=== PATIENT | female | born 1955 | race Caucasian/White ===

== ENCOUNTER 2020-09-28 13:01 | Emergency (ER) | payer OTHER, SELFPAY ==
--- NOTE | 2020-09-28 13:11 | ED.ALCOHOL ---
HPI - Alcohol General Chief Complaint: ETOH/Substance Use Stated Complaint: ? Time Seen by Provider: 09/28/20 13:07 Source: patient and EMS Mode of arrival: EMS Limitations: no limitations History of Present Illness HPI narrative: wants help with ETOH detox MD complaint: alcohol intoxication Last drink: Hours (ago) Chronic alcohol use: Yes Previous visits for alcohol intoxication: Yes Recent trauma: No Associated symptoms: denies other symptoms Treatments prior to arrival: none Related Data Allergies Allergy/AdvReac Type Severity Reaction Status Date / Time No Known Allergies Allergy Verified 09/28/20 13:07 Review of Systems Review of Systems: Constitutional : No Weight loss, No Fever, No Chills, No Fatigue, No Malaise ENT/Mouth : No sore throat, No Rhinorrhea Eyes: No Eye Pain, No Swelling, No Redness Cardiovascular : No Chest Pain, No SOB, No Dyspnea on Exertion, No Orthopnea, No Edema, No Palpitations Respiratory : No Cough, No Sputum, No Wheezing Gastrointestinal : No Nausea, No Vomiting, No Diarrhea, No Constipation, No abdominal Pain, No Hematochezia, No Melena Genitourinary : No Dysuria, No Urinary Frequency, No Hematuria, Musculoskeletal : No joint pain, No Myalgias, No Joint Swelling Skin : No Skin Lesions, No rash Neuro : No Weakness, No Numbness, No Dizziness, No Headache Psych : pos Anxiety/Panic, pos Depression, no SI/HI Heme/Lymph: No Bruising, No Bleeding,No Lymphadenopathy Endocrine : No Polyuria, No Polydipsia All other systems reviewed and are negative [facility] Past Medical History Attestation statement: The following information was validated with the patient. Medical History Alcoholism Cirrhosis Social History Social History (Updated 09/28/20 @ 13:13 by Kelly Shaffer DO) Alcohol intake: current Patient Tobacco Use Status: Current someday Tobacco user Use of substances other than those prescribed or required for medical reasons: No Advance Directives: No Advance Directives Information Provided: No Patient : No Physical Exam Vital Signs: Vital Signs: Last Vital Signs Temp 98.2 F 09/28/20 13:13 Pulse 86 09/28/20 13:13 Resp 16 09/28/20 13:13 BP 116/58 L 09/28/20 13:13 Pulse Ox 100 09/28/20 13:13 Body Mass Index 20.0 Appearance: Alert. Oriented X3. No acute distress. Eyes: Pupils equal, round and reactive to light. scleral icterus noted ENT: Pharynx normal. Neck: Normal inspection. Neck supple. CVS: Normal heart rate and rhythm. Pulses normal. Respiratory: No respiratory distress. Breath sounds normal. Abdomen: Soft and non-tender. Skin: Skin warm and dry. mild jaundice noted. Normal skin turgor. Extremities: No lower extremity edema. No calf ttp Neuro: Oriented X 3. No motor deficit. No sensory deficit. Course Course Course Narrative: patient refuses EKG states the stickers are very harmful to her skin labs consistent with cirrhosis Patient placed in physician observation at 533pm. The indication for observation is that the patient needs more time to metabolize alcohol and assess for detox. At this time the patient is well developed well nourished, lungs clear, CV RRR, abd nontender, neuro is intact. MDM - Alcohol MDM Narrative Medical decision making narrative: 65 yo female with cirrhosis and ETOH here requesting help with detox as she could not get in on her own and she felt helpless - no trauma reported, will need labs, care team consult, PO thiamine, denies prior history of withdrawal seizures Lab Data Result diagrams: 09/28/20 13:44 09/28/20 13:43 Labs: Lab Results 09/28/20 09/28/20 09/28/20 Range/Units 13:43 13:43 13:44 WBC 4.1 L (4.8-10.8) X10*3/uL RBC 3.52 L (4.20-5.50) X10*6/uL Hgb 10.4 L (12.0-16.0) g/dl Hct 31.3 L (37-47) % MCV 88.9 (80-98) fL MCH 29.5 (27.0-33.0) pg MCHC 33.2 (31.0-35.0) g/dl RDW 15.6 (11.0-16.0) % Plt Count 51 L (160-400) X10*3/uL MPV 12.1 (9.4-12.3) fL Immature Gran % (Auto) 0.0 (0.0-0.4) % Neut % (Auto) 61.0 (45-73) % Lymph % (Auto) 28.9 (20-40) % [place] % (Auto) 7.4 (2-11) % Eos % (Auto) 2.0 (0-4) % Baso % (Auto) 0.7 (0-2) % Lymph # (Auto) 1.2 (1.2-4.9) X10*3/uL [place] # (Auto) 0.3 (0.1-1.2) X10*3/uL Eos # (Auto) 0.1 (0.0-0.4) X10*3/uL Baso # (Auto) 0.0 (0.0-0.2) X10*3/uL Abs Immat Gran (auto) 0.00 (0.00-0.03) X10*3/uL Absolute Neuts (auto) 2.5 (2.0-8.3) X10*3/uL Absolute Nucleated RBC 0.000 (0.0-0.012) X10*3/uL Nucleated RBC % (auto) 0.0 (0.0-0.2) /100WBC Smear Tech's Comments VERIFIED Sodium 147 H (135-145) mmol/L Potassium 3.2 L (3.3-5.1) mmol/L Chloride 112 H (96-108) mmol/L Carbon Dioxide 22 (22-29) mmol/L Anion Gap 16 (12-20) BUN 12 (9-16) mg/dL Creatinine 0.85 (0.5-1.4) mg/dL Estim Creat Clear Calc 58.1 Estimated GFR > 60 Random Glucose 124 H (60-115) mg/dL Calcium 8.5 (8.4-10.2) mg/dL Magnesium (1.6-2.6) mg/dL Total Bilirubin (0.0-1.0) mg/dL Direct Bilirubin (0.0-0.5) mg/dL AST (5-31) U/L ALT (0-31) U/L Alkaline Phosphatase (39-117) U/L Total Protein (6.5-8.0) g/dL Albumin (3.5-5.0) g/dL Ethyl Alcohol 430 H* mg/dL COVID-19 (ALEJANDRO) (Negative) COVID-19 Clin Com 09/28/20 09/28/20 Range/Units 13:44 13:45 WBC (4.8-10.8) X10*3/uL RBC (4.20-5.50) X10*6/uL Hgb (12.0-16.0) g/dl Hct (37-47) % MCV (80-98) fL MCH (27.0-33.0) pg MCHC (31.0-35.0) g/dl RDW (11.0-16.0) % Plt Count (160-400) X10*3/uL MPV (9.4-12.3) fL Immature Gran % (Auto) (0.0-0.4) % Neut % (Auto) (45-73) % Lymph % (Auto) (20-40) % [place] % (Auto) (2-11) % Eos % (Auto) (0-4) % Baso % (Auto) (0-2) % Lymph # (Auto) (1.2-4.9) X10*3/uL [place] # (Auto) (0.1-1.2) X10*3/uL Eos # (Auto) (0.0-0.4) X10*3/uL Baso # (Auto) (0.0-0.2) X10*3/uL Abs Immat Gran (auto) (0.00-0.03) X10*3/uL Absolute Neuts (auto) (2.0-8.3) X10*3/uL Absolute Nucleated RBC (0.0-0.012) X10*3/uL Nucleated RBC % (auto) (0.0-0.2) /100WBC Smear Tech's Comments Sodium (135-145) mmol/L Potassium (3.3-5.1) mmol/L Chloride (96-108) mmol/L Carbon Dioxide (22-29) mmol/L Anion Gap (12-20) BUN (9-16) mg/dL Creatinine (0.5-1.4) mg/dL Estim Creat Clear Calc Estimated GFR Random Glucose (60-115) mg/dL Calcium (8.4-10.2) mg/dL Magnesium 1.8 (1.6-2.6) mg/dL Total Bilirubin 3.2 H (0.0-1.0) mg/dL Direct Bilirubin 1.3 H (0.0-0.5) mg/dL AST 102 H (5-31) U/L ALT 39 H (0-31) U/L Alkaline Phosphatase 101 (39-117) U/L Total Protein 7.5 (6.5-8.0) g/dL Albumin 4.5 (3.5-5.0) g/dL Ethyl Alcohol mg/dL COVID-19 (ALEJANDRO) Negative (Negative) COVID-19 Clin Com See Note Discharge Plan Discharge Clinical Impression: Alcoholic intoxication Instructions: Abuse of Alcohol (ED)
[2020-09-28 13:13] VITALS: BP 116/58; PULSE 86; RESP 16; TEMP 36.8; O2SAT 100
--- NOTE | 2020-09-28 13:23 | PC.NURSE ---
PT REFUSED EKG RN AWARE, AWARE
[2020-09-28] MEDS: Thiamine HCL 100 MG TABLET PO (13:27)
[2020-09-28 13:53] LABS: Basophils Percent Auto 0.7 % (0-2); MANUAL DIFF FLAG SCAN; PLT CLUMP 1; SCAN SMEAR FLAG 1
[2020-09-28 13:55] LABS: Eosinophils Absolute Auto 0.1 X10*3/uL (0.0-0.4); Hematocrit 31.3 % (37-47); Hemoglobin 10.4 g/dl (12.0-16.0); Lymphocytes Absolute Auto 1.2 X10*3/uL (1.2-4.9); Lymphocytes Percent Auto 28.9 % (20-40); Mean Corpuscular HGB Conc 33.2 g/dl (31.0-35.0); Mean Corpuscular Hemoglobin 29.5 pg (27.0-33.0); Mean Corpuscular Volume 88.9 fL (80-98); Mean Platelet Volume 12.1 fL (9.4-12.3); Monocytes Absolute Auto 0.3 X10*3/uL (0.1-1.2); Monocytes Percent Auto 7.4 % (2-11); Neutrophils Absolute Auto 2.5 X10*3/uL (2.0-8.3); Red Blood Count 3.52 X10*6/uL (4.20-5.50); Red Cell Distribution Width 15.6 % (11.0-16.0); White Blood Count 4.1 X10*3/uL (4.8-10.8)
[2020-09-28 14:08] LABS: COVID-19 Test Negative (Negative); IDNOW Serial# 9DD0AD1C
[2020-09-28 14:15] LABS: Platelet Count 51 X10*3/uL (160-400)
[2020-09-28 14:16] LABS: SLIDE REVIEW VERIFIED
[2020-09-28 14:23] LABS: Ethanol 430 mg/dL
[2020-09-28 14:26] LABS: Anion Gap 16 (12-20); Blood Urea Nitrogen 12 mg/dL (9-16); Calcium 8.5 mg/dL (8.4-10.2); Carbon Dioxide 22 mmol/L (22-29); Chloride 112 mmol/L (96-108); Creatinine Clr Calc Pharmacy 58.1; Estimated Glomerular Filt Rate > 60; Glucose Random 124 mg/dL (60-115); Potassium 3.2 mmol/L (3.3-5.1); Sodium 147 mmol/L (135-145)
[2020-09-28 14:28] LABS: Alanine Aminotransferase 39 U/L (0-31); Albumin Level 4.5 g/dL (3.5-5.0); Alkaline Phosphatase 101 U/L (39-117); Aspartate Amino Transferase 102 U/L (5-31); Bilirubin Direct 1.3 mg/dL (0.0-0.5); Bilirubin Total 3.2 mg/dL (0.0-1.0); Magnesium 1.8 mg/dL (1.6-2.6); Total Protein 7.5 g/dL (6.5-8.0)
--- NOTE | 2020-09-28 15:26 | PC.NURSE ---
pt is nauseous at this time- hold off on potassium- aware
--- NOTE | 2020-09-28 18:46 | PC.NURSE ---
pt becoming increasingly irritated talking to intake on the phone. plan to get vitals and offer medication s/p conversation
--- NOTE | 2020-09-28 18:49 | PC.NURSE ---
pt refusing medication at this time
[2020-09-28 19:01] VITALS: BP 134/74; PULSE 95; TEMP 36.6; O2SAT 97
--- NOTE | 2020-09-28 19:48 | MHC.CARE ---
CARE team rec consult for case for ETOH detox. Pt is a 65 yro female who arrived to [facility] today at 1pm on her own asking for help getting into detox for her ETOH dep. Pts BAL upon arrival was 430. Pt was medically stable and moved to the Pod for referral to help with detox. While pt was resting quietly in the pod later this afternoon after her medical workup, CARE team began a statewide detox bedsearch. The following were full and no beds available: [facility] and [facility], and [facility] in [place] accepted clinical then declined based on commercial insurance. CARE referred to [facility] and [facility] but was declined based on commercial insurance (no out of network benefits). CARE referred back to [facility] in [place] where pt reportedly had recently attended for 1 day that ended when pt had a fall while there. CARE spoke with [facility] about return and based on the exhausted bedsearch statewide considering a single case agreement. T/w had pt partake in phone interview and spoke with admission at [facility] at 1930 who hoped to get her the help she needs by later tonight and agreed to pursue the insurance aspect and single case agreement sooner than Wednesday (based on insurance ). Stefan will call [facility] ED and ask for POD to review the dispo later. T/w clarified with [facility] that pt is indeed fully ambulatory and can participate in her ADLS at present due to an error that was listed in ED summary stating pt required assist in ambulation. T/w faxed full clinical. Pt is agreeable and on board with the (hopeful) plan to be accepted to [place].
[2020-09-28] MEDS: Potassium Chloride Packet 20 MEQ PACKET PO (19:52)
[2020-09-28] MEDS: LORazepam 1 MG TABLET PO (19:52)
--- NOTE | 2020-09-28 20:00 | PC.NURSE ---
Pt medicated as ordered with Ativan and Potassium Chloride 20meq packet. Will continue to monitor.
[2020-09-28 20:12] LABS: Glucose Urine UA NEG (NEG); Leukocyte Esterase Urine 1+ (NEG); Nitrite Urine NEG (NEG); UACC Culture Trigger YES; Urine Blood TRACE (NEG); Urine Ketones NEG (NEG); Urine Protein 1+ MG/DL (NEG-TRACE)
[2020-09-28 20:17] LABS: Appearance Urine CLEAR; Color Urine YELLOW
[2020-09-28 20:38] LABS: Amphetamine Screen Urine Not Detected (Not Detect); Barbiturates, Urine Not Detected (Not Detect); Benzodiazepines Screen Urine Not Detected (Not Detect); Cannabinoid Screen Urine POSITIVE (Not Detect); Cocaine Screen Urine Not Detected (Not Detect); Opiate Screen Urine Not Detected (Not Detect); Phencyclidine Screen Urine Not Detected (Not Detect); RBC Urine 0-2 /HPF (0); Squamous Epithelial Cell Urine 1+ /LPF
--- NOTE | 2020-09-29 05:35 | PC.NURSE ---
Throughout this shift, patient has remained in behavioral control, and has remained calm/cooperative with all staff members. Pt sleeping at this time. [facility] from [facility] Team[facility] [place] [place] [facility] this RN, however, no call was received during this shift. Hopeful plan for patient to go to [facility] later today (per Care Team). Pt ambulates with steady gait throughout shift independently and is able to make needs known. Pt continues to want detox services and is 'excited' about going back to [facility] and is hopeful and positive about goals towards recovery, as told to this RN. Will continue to monitor.
[2020-09-29 06:00] VITALS: BP 126/63; PULSE 93; RESP 18; TEMP 37.6; O2SAT 96
--- NOTE | 2020-09-29 07:35 | PC.NURSE ---
report taken from agueda calderon pt here for etoh use/seeking detox, has been resting comfortably in pt bed throughout night per previous shift rn. breakfast tray left at bedside this am, rr even/unlabored. potential plan for xfer to [facility] today per previous shift rn, will f/u w care team.
[2020-09-29 09:37] VITALS: BP 117/68; PULSE 86; RESP 16; TEMP 36.8; O2SAT 97
[2020-09-29] MEDS: LORazepam 1 MG TABLET PO ×2 (10:09→16:01)
--- NOTE | 2020-09-29 10:10 | PC.NURSE ---
pt requesting med for nausea, given zofran. pt still feeling nauseous, had small emesis in emesis bag. sts feeling some chills as well, given prn ativan d/t s/s of withdrawal. pt pleasant w this rn, will monitor for med effect.
--- NOTE | 2020-09-29 11:08 | PC.NURSE ---
pt reports feeling better after prn ativan, awaiting update from care team regarding potential xfer to detox
--- NOTE | 2020-09-29 12:52 | MHC.RECOVSUP ---
Recovery Support note: This bond underwriter met with patient to follow up regarding the plan set in place yesterday by The CARE Team. Patient continues to report interest in going to [facility] for detox. Patient reports she was there several months ago, however got up too quickly from bed to go the bathroom and hit her shoulder on a chair, resulting in a hematoma. Patient was discharged due to this and reports she was there for one day. This bond underwriter [facility] and they reported that patient would benefit most from a SNF. This bond underwriter explained that patient can ambulate and perform her ADL's independently. [facility] relayed this information to the reviewing physician. After several hours, this bond underwriter received follow up from [facility]. For patient to be considered for admission, they are requesting PT/INR labs, a repeat on the potassium and a diagnosis regarding her hematological issues. This bond underwriter updated patient on the current situation and she is agreeable to having labs redrawn. Discussed case with patient's ED provider. This bond underwriter will fax the updated information to [facility] as soon as it is available.
[2020-09-29 13:31] LABS: INTERNATIONAL NORM RATIO 1.5 (0.9-1.1); Prothrombin Time 17.2 SEC (9.9-13.0)
[2020-09-29 13:57] LABS: Anion Gap 17 (12-20); Blood Urea Nitrogen 12 mg/dL (9-16); Carbon Dioxide 22 mmol/L (22-29); Chloride 105 mmol/L (96-108); Creatinine Clr Calc Pharmacy 59.6; Estimated Glomerular Filt Rate > 60; Glucose Random 139 mg/dL (60-115); Potassium 3.9 mmol/L (3.3-5.1); Sodium 140 mmol/L (135-145)
[2020-09-29 17:32] VITALS: BP 153/78; PULSE 105; RESP 18; O2SAT 98
== END 2020-09-29 18:35 | disposition other institution (70) ==
PROVIDERS: Nurse Practitioner Family; Emergency Provider Emergency Medicine; PCP Internal Medicine
DX: F10.229 Alcohol dependence with intoxication, unspecified (principal); Y90.8 Blood alcohol level of 240 mg/100 ml or more; K74.60 Unspecified cirrhosis of liver; R79.1 Abnormal coagulation profile; D64.9 Anemia, unspecified; D69.6 Thrombocytopenia, unspecified; Z20.822 Contact with and (suspected) exposure to COVID-19
CPT/HCPCS: 36415; 80048; 80076; 80307; 81001; 81003; 82077; 83735; 85025; 85610; 87086; 87635; 99285

== ENCOUNTER 2020-11-11 12:38 | Emergency (ER) | payer OTHER, SELFPAY ==
[2020-11-11 12:48] VITALS: BP 125/70; BP 138/79; PULSE 88; PULSE 90; RESP 18; O2SAT 97; O2SAT 98; BMI 17.4
--- NOTE | 2020-11-11 12:49 | ED.ALCOHOL ---
HPI - Alcohol General Chief Complaint: ETOH/Substance Use Stated Complaint: etoh intoxication Time Seen by Provider: 11/11/20 12:45 Source: patient and EMS Mode of arrival: EMS Limitations: other (ETOH intoxication) History of Present Illness MD complaint: alcohol intoxication and desires rehab Last drink: Just prior to admission Chronic alcohol use: Yes Previous visits for alcohol intoxication: Yes Recent trauma: No Associated symptoms: other (has not eaten for 3 days) Treatments prior to arrival: none Related Data Home Medications Medication Instructions Recorded Confirmed No Known Home Meds 09/28/20 09/28/20 Allergies Allergy/AdvReac Type Severity Reaction Status Date / Time No Known Allergies Allergy Verified 09/28/20 13:07 Review of Systems Review of Systems: ROS unable to be obtained due to ETOH intoxication [facility] Past Medical History Attestation statement: The following information was validated with the patient. Medical History Alcoholism Cirrhosis Social History Social History Alcohol intake: current Patient Tobacco Use Status: Current someday Tobacco user Advance Directives: No Advance Directives Information Provided: No Physical Exam Vital Signs: Vital Signs: Last Vital Signs Pulse 88 11/11/20 12:48 Resp 18 11/11/20 12:48 BP 138/79 11/11/20 12:48 Pulse Ox 97 11/11/20 12:48 Body Mass Index 17.4 Appearance: Alert. Oriented X3. No acute distress. ETOH odor, slurred speech Eyes: Pupils equal, round and reactive to light. scleral icterus ENT: Pharynx normal. Neck: Normal inspection. Neck supple. CVS: Normal heart rate and rhythm. Pulses normal. Respiratory: No respiratory distress. Breath sounds normal. Abdomen: Soft and nontender. Skin: Skin warm and dry. jaundiced. Normal skin turgor. Extremities: No lower extremity edema. No calf ttp Neuro: Oriented X 3. No motor deficit. No sensory deficit. Course Course Course Narrative: will give PO and IV potassium for repletion she is able to eat, pending that her labs are at baseline will be able to go to rehab plan is for after potassium - go to [facility] platelets, liver function tests at baseline for her cirrhosis, K repleted in ED, and given IVF/thiamine/folic acid MDM - Alcohol MDM Narrative Medical decision making narrative: 65 yo female with ETOH abuse and cirrhosis here with c/o wanting rehab and not eating x 3 days since she was drinking so much. At this time labs, IVF, IV thiamine/folic acid. no trauma reported. Recovery coaches aware. Lab Data Result diagrams: 11/11/20 12:54 11/11/20 12:55 Labs: Lab Results 11/11/20 11/11/20 11/11/20 Range/Units 12:54 12:55 12:55 WBC 5.7 (4.8-10.8) X10*3/uL RBC 3.79 L (4.20-5.50) X10*6/uL Hgb 10.7 L (12.0-16.0) g/dl Hct 33.0 L (37-47) % MCV 87.1 (80-98) fL MCH 28.2 (27.0-33.0) pg MCHC 32.4 (31.0-35.0) g/dl RDW 14.6 (11.0-16.0) % Plt Count 47 L (160-400) X10*3/uL MPV 13.0 H (9.4-12.3) fL Immature Gran % (Auto) 0.4 (0.0-0.4) % Neut % (Auto) 65.5 (45-73) % Lymph % (Auto) 26.0 (20-40) % [place] % (Auto) 6.0 (2-11) % Eos % (Auto) 1.6 (0-4) % Baso % (Auto) 0.5 (0-2) % Lymph # (Auto) 1.5 (1.2-4.9) X10*3/uL [place] # (Auto) 0.3 (0.1-1.2) X10*3/uL Eos # (Auto) 0.1 (0.0-0.4) X10*3/uL Baso # (Auto) 0.0 (0.0-0.2) X10*3/uL Abs Immat Gran (auto) 0.02 (0.00-0.03) X10*3/uL Absolute Neuts (auto) 3.7 (2.0-8.3) X10*3/uL Absolute Nucleated RBC 0.000 (0.0-0.012) X10*3/uL Nucleated RBC % (auto) 0.0 (0.0-0.2) /100WBC PT (9.9-13.0) SEC INR (0.9-1.1) APTT (24.1-38.0) SEC Sodium Cancelled Potassium Cancelled Chloride Cancelled Carbon Dioxide Cancelled Anion Gap Cancelled BUN Cancelled Creatinine Cancelled Estim Creat Clear Calc Cancelled Estimated GFR Cancelled Random Glucose Cancelled Calcium Cancelled Magnesium (1.6-2.6) mg/dL Total Bilirubin (0.0-1.0) mg/dL Direct Bilirubin (0.0-0.5) mg/dL AST (5-31) U/L ALT (0-31) U/L Alkaline Phosphatase (39-117) U/L Total Protein (6.5-8.0) g/dL Albumin (3.5-5.0) g/dL Ethyl Alcohol mg/dL COVID-19 (ALEJANDRO) Negative (Negative) COVID-19 Clin Com See Note 11/11/20 11/11/20 11/11/20 Range/Units 12:55 12:55 12:55 WBC (4.8-10.8) X10*3/uL RBC (4.20-5.50) X10*6/uL Hgb (12.0-16.0) g/dl Hct (37-47) % MCV (80-98) fL MCH (27.0-33.0) pg MCHC (31.0-35.0) g/dl RDW (11.0-16.0) % Plt Count (160-400) X10*3/uL MPV (9.4-12.3) fL Immature Gran % (Auto) (0.0-0.4) % Neut % (Auto) (45-73) % Lymph % (Auto) (20-40) % [place] % (Auto) (2-11) % Eos % (Auto) (0-4) % Baso % (Auto) (0-2) % Lymph # (Auto) (1.2-4.9) X10*3/uL [place] # (Auto) (0.1-1.2) X10*3/uL Eos # (Auto) (0.0-0.4) X10*3/uL Baso # (Auto) (0.0-0.2) X10*3/uL Abs Immat Gran (auto) (0.00-0.03) X10*3/uL Absolute Neuts (auto) (2.0-8.3) X10*3/uL Absolute Nucleated RBC (0.0-0.012) X10*3/uL Nucleated RBC % (auto) (0.0-0.2) /100WBC PT 16.7 H (9.9-13.0) SEC INR 1.5 H (0.9-1.1) APTT 45.0 H (24.1-38.0) SEC Sodium 147 H Potassium 2.9 L D Chloride 110 H Carbon Dioxide 23 Anion Gap 17 BUN 16 Creatinine 0.91 Estim Creat Clear Calc 47.5 Estimated GFR > 60 Random Glucose 132 H Calcium 8.4 D Magnesium 1.9 (1.6-2.6) mg/dL Total Bilirubin 3.9 H (0.0-1.0) mg/dL Direct Bilirubin 1.5 H (0.0-0.5) mg/dL AST 121 H (5-31) U/L ALT 38 H (0-31) U/L Alkaline Phosphatase 117 (39-117) U/L Total Protein 7.9 (6.5-8.0) g/dL Albumin 4.6 (3.5-5.0) g/dL Ethyl Alcohol 398 H* mg/dL COVID-19 (ALEJANDRO) (Negative) COVID-19 Clin Com Discharge Plan Discharge Clinical Impression: Alcoholic intoxication, Acute hypokalemia Patient Disposition[facility]al[facility] ([facility]), Alcohol Intoxication (ED) Additional Instructions: return to ED for any worsening symptoms or concerns Prescriptions: No Action No Known Home Meds RF: 0
--- NOTE | 2020-11-11 13:40 | MHC.RECOVSUP ---
? Reason for consult:Continuity of care o Current location: Bed [address] [place] o Identified substance use concern:ETOH - Withdrawal - Seeking ATS (detox) - Support ? Intervention: o ATS bed search started/completed/in process o Community resources provided o Harm reduction discussion ? Plan: o Bed search in progress to o Patient to follow up with [facility] after discharge ? Additional information: Pt. seeking detox at facility she was recently discgarged from. [place] will take her back once medically cleared. Contact personm:[phone]
[2020-11-11] MEDS: 0.9 % Sodium Chloride 1,000 ML 999 ML IVCONT (13:44)
[2020-11-11 13:46] LABS: MANUAL DIFF FLAG NO
[2020-11-11 13:47] LABS: COVID-19 Test Negative (Negative); IDNOW Serial# 9DD0AD1C
[2020-11-11 13:52] LABS: Basophils Percent Auto 0.5 % (0-2); Eosinophils Absolute Auto 0.1 X10*3/uL (0.0-0.4); Eosinophils Percent Auto 1.6 % (0-4); Hemoglobin 10.7 g/dl (12.0-16.0); Imm Gran Abs Auto 0.02 X10*3/uL (0.00-0.03); Imm Gran Pct Auto 0.4 % (0.0-0.4); Lymphocytes Absolute Auto 1.5 X10*3/uL (1.2-4.9); Mean Corpuscular HGB Conc 32.4 g/dl (31.0-35.0); Mean Corpuscular Hemoglobin 28.2 pg (27.0-33.0); Mean Corpuscular Volume 87.1 fL (80-98); Monocytes Absolute Auto 0.3 X10*3/uL (0.1-1.2); Neutrophils Absolute Auto 3.7 X10*3/uL (2.0-8.3); Neutrophils Percent Auto 65.5 % (45-73); Red Blood Count 3.79 X10*6/uL (4.20-5.50); Red Cell Distribution Width 14.6 % (11.0-16.0); White Blood Count 5.7 X10*3/uL (4.8-10.8)
[2020-11-11 13:55] LABS: Platelet Count 47 X10*3/uL (160-400)
[2020-11-11 13:56] LABS: INTERNATIONAL NORM RATIO 1.5 (0.9-1.1); Prothrombin Time 16.7 SEC (9.9-13.0)
[2020-11-11] MEDS: Thiamine HCL 200 MG/2 ML VIAL 100 MG IVPUSH (13:56)
[2020-11-11 14:11] LABS: Ethanol 398 mg/dL
[2020-11-11 14:25] LABS: Alanine Aminotransferase 38 U/L (0-31); Albumin Level 4.6 g/dL (3.5-5.0); Alkaline Phosphatase 117 U/L (39-117); Anion Gap 17 (12-20); Aspartate Amino Transferase 121 U/L (5-31); Bilirubin Direct 1.5 mg/dL (0.0-0.5); Bilirubin Total 3.9 mg/dL (0.0-1.0); Blood Urea Nitrogen 16 mg/dL (9-16); Calcium 8.4 mg/dL (8.4-10.2); Carbon Dioxide 23 mmol/L (22-29); Chloride 110 mmol/L (96-108); Creatinine Clr Calc Pharmacy 47.5; Estimated Glomerular Filt Rate > 60; Glucose Random 132 mg/dL (60-115); Magnesium 1.9 mg/dL (1.6-2.6); Potassium 2.9 mmol/L (3.3-5.1); Sodium 147 mmol/L (135-145); Total Protein 7.9 g/dL (6.5-8.0)
--- NOTE | 2020-11-11 15:01 | MHC.RECOVRN ---
Referral sent to [facility], including labs and provider notes. T/w spoke with Velia who is scheduling pt waste picker for 5PM. CARE Team and provider aware.
[2020-11-11] MEDS: Potassium Chloride/H20 10 MEQ/100 ML PIGGYBACK 100 MEQ IV (15:19)
[2020-11-11 15:32] VITALS: BP 127/62; PULSE 75; RESP 16; O2SAT 98
[2020-11-11] MEDS: Potassium Chloride ER 20 MEQ TAB.ER.PRT 40 MEQ PO (16:05)
== END 2020-11-11 17:56 | disposition other institution (70) ==
PROVIDERS: Emergency Provider Emergency Medicine; PCP Internal Medicine
DX: F10.129 Alcohol abuse with intoxication, unspecified (principal); E87.6 Hypokalemia; Y90.8 Blood alcohol level of 240 mg/100 ml or more; F17.200 Nicotine dependence, unspecified, uncomplicated; Z20.822 Contact with and (suspected) exposure to COVID-19; Z71.6 Tobacco abuse counseling; Z71.41 Alcohol abuse counseling and surveillance of alcoholic
CPT/HCPCS: 36415; 80048; 80076; 82077; 83735; 85025; 85610; 85730; 87635; 96361; 96365; 96366; 96375; 99283; 99285; J3411